=== PATIENT | female | born 1965 | race Caucasian/White ===

== ENCOUNTER 2017-05-02 15:44 | Emergency (ER) | payer SELFPAY ==
[~2017-05-02 15:44] MED LIST: ISOVUE-370 76%-LOCM 1 ML ONE
[2017-05-02] MEDS ORDERED: Ondansetron HCl/PF 4 MG/2 ML Vial ONE (16:01)
[2017-05-02 16:10] LABS: #Lymphocytes 1.7 thou/uL (1.20-3.40); #Monocytes 1.9 thou/uL (0.11-0.59); #Neutrophils 12.3 thou/uL (1.40-6.50); %Basophils 0.2 % (0.0-1.0); %Eosinophils 0.2 % (0.0-10.0); %Lymphocytes 10.4 % (21.0-51.0); %Monocytes 11.9 % (0.0-10.0); Hematocrit 45.4 % (36.0-47.0); Mean Platelet Volume 7.5 fL (7.4-10.4); Red Blood Cell (RBC) Count 4.88 mill/uL (4.20-5.40); White Blood Cell (WBC) Count 15.9 thou/uL (4.8-10.8)
[2017-05-02 16:30] LABS: Bilirubin Negative (Negative); Blood, Urine Large (Negative); Glucose, Urine (Dipstick) Negative (Negative); Ketone, Urine Negative (Negative); Nitrite Positive (Negative); Protein, Urine (Dipstick) Trace mg/dL (Neg-Trace)
[2017-05-02 16:32] LABS: Bacteria/HPF 4+ HPF (None Seen); Hyaline Casts/LPF 0-3 HYALINE CAST LPF (0-3 Hyaline); Squamous Epithelial 0-3 HPF (0-3); WBC/HPF 21-50 HPF (0-3)
[2017-05-02 16:35] LABS: ALT (SGPT) 51 U/L (8-55); AST (SGOT) 27 U/L (5-34); Alkaline Phosphatase 69 U/L (40-150); Anion Gap 14 mmol/L (10-20); BUN (Urea Nitrogen) 10 mg/dL (7.0-18.7); Calc. Creatinine Clearance 0 mL/min (70-130); Carbon Dioxide 24 mmol/L (22-29); Chloride 102 mmol/L (98-107); Estimated GFR-MDRD 74; Globulin 3.8 g/dL (2.4-3.5); Lipase 5 U/L (8-78); Protein, Total 7.8 g/dL (6.0-8.3)
[2017-05-02] MEDS ORDERED: cefTRIAXone\\ROCEPHIN 1 GM VIAL ONE (17:08)
[2017-05-02] MEDS ORDERED: Sodium Chloride 0.9% 100 ML ONE (17:09)
--- NOTE | 2017-05-02 17:14 | CT ---
CT ABDOMEN AND PELVIS WITH CONTRAST: 05/02/17 COMPARISON: None. HISTORY: Right upper and lower quadrant abdominal pain that started on Saturday. Irritable bowel syndrome and constipation. TECHNIQUE: Multiple contiguous axial images were obtained in a CT of the abdomen and pelvis with contrast. Janina nal reformats were performed. FINDINGS: There is possible hypodense enhancement along some of the cortices of the right kidney which could s uggest early pyelonephritis. The liver, gallbladder, left kidney, adrenal glands, spleen, and pancre as are unremarkable. No free air, free fluid, or stranding changes are seen in the abdomen or pelvis . The reproductive organs are unremarkable. The large and small bowel are unremarkable. The appendix i s normal. No significant stool retention is seen in the colon. No abdominal or pelvic lymphadenopath y are seen. The osseous structures, visualized inferior thorax and abdominal wall soft tissues are unremarkable. IMPRESSION: 1. Possible early right pyelonephritis. 2. No evidence of acute appendicitis. POS: [facility]
== END 2017-05-02 19:02 | disposition home or self-care (01) ==
LOC: ERS 15:44
DX: N39.0 Urinary tract infection, site not specified (principal); E03.9 Hypothyroidism, unspecified; Z79.899 Other long term (current) drug therapy
CPT/HCPCS: 74177; 80053; 81003; 81015; 83690; 85025; 96361; 96365; 96375; J0696; J2270; J2405; J7050